=== PATIENT | female | born 1980 | race Caucasian/White ===

== ENCOUNTER 2017-09-27 11:59 | Emergency (ER) | payer SELFPAY ==
[~2017-09-27] VITALS: Ht 157.5 cm; Wt 88.2 kg
[2017-09-27 12:52] LABS: BASOPHIL % 0.6 % (0-2); PLATELET COUNT 209 x10^3mcL (130-400); RED CELL DISTRIBUTION WIDTH 14.5 % (11.5-14.5)
[2017-09-27 13:11] LABS: CALCIUM 8.3 mg/dL (8.5-10.1); CARBON DIOXIDE 28.9 mmol/L (21-32); CHLORIDE SERUM 105 mmol/L (98-107); GFR1 > 60 mL/min; GLUCOSE SERUM 90 mg/dL (74-106); POTASSIUM SERUM 3.9 mmol/L (3.5-5.1); SODIUM SERUM 141 mmol/L (136-145)
[2017-09-27 13:16] LABS: ALBUMIN 3.6 g/dL (3.4-5.0); ALKALINE PHOSPHATASE 73 U/L (46-116); ALT/SGPT 24 U/L (14-59); AST/SGOT 17 U/L (15-37); BILIRUBIN TOTAL 0.8 mg/dL (0.20-1.00); TOTAL PROTEIN, SERUM 7.7 g/dL (6.4-8.2)
[2017-09-27 14:16] VITALS: BP 101/57
== END 2017-09-27 14:16 | disposition home or self-care (01) ==
LOC: ED 11:59
PROVIDERS: Specialist
DX: K62.5 Hemorrhage of anus and rectum (principal)
CPT/HCPCS: 36415

== ENCOUNTER 2017-11-13 20:02 | Emergency (ER) | payer SELFPAY ==
[~2017-11-13] VITALS: Ht 157.5 cm; Wt 87.5 kg
[2017-11-13 20:11] VITALS: Ht 157.5 cm; Wt 87.5 kg
[2017-11-13 22:52] LABS: BASOPHIL % 0.7 % (0-2); PLATELET COUNT 251 x10^3mcL (130-400)
[2017-11-13 22:53] LABS: RED CELL DISTRIBUTION WIDTH 14.6 % (11.5-14.5)
[2017-11-13 22:55] LABS: CALCIUM 8.3 mg/dL (8.5-10.1); CARBON DIOXIDE 27.8 mmol/L (21-32); CHLORIDE SERUM 103 mmol/L (98-107); CREATININE SERUM 0.9 mg/dL (0.6-1.0); GFR1 > 60 mL/min; GLUCOSE SERUM 108 mg/dL (74-106); POTASSIUM SERUM 3.7 mmol/L (3.5-5.1); SODIUM SERUM 136 mmol/L (136-145)
[2017-11-13 22:59] LABS: ALKALINE PHOSPHATASE 73 U/L (46-116); ALT/SGPT 14 U/L (14-59); AMYLASE 66 U/L (25-115); AST/SGOT 11 U/L (15-37); BILIRUBIN TOTAL 0.47 mg/dL (0.20-1.00); LIPASE 178 IU/L (73-393); TOTAL PROTEIN, SERUM 7.9 g/dL (6.4-8.2)
[2017-11-13 23:09] LABS: ALBUMIN 3.2 g/dL (3.4-5.0)
[2017-11-14 00:14] VITALS: BP 118/71
== END 2017-11-14 00:14 | disposition home or self-care (01) ==
LOC: ED 20:02
PROVIDERS: Emergency Medicine
DX: S29.011A Strain of muscle and tendon of front wall of thorax, initial encounter (principal); X58.XXXA Exposure to other specified factors, initial encounter; Y93.89 Activity, other specified; Y92.89 Other specified places as the place of occurrence of the external cause; Y99.8 Other external cause status; R21 Rash and other nonspecific skin eruption
CPT/HCPCS: 36415; J1885